=== PATIENT | female | born 1945 | race Caucasian/White ===

== ENCOUNTER 2021-10-26 18:48 | Emergency (ER) | payer MEDICARE, OTHER ==
[2021-10-26 19:24] LABS: HEMOGLOBIN 8.2 gm/dl (12.3-15.3); RED BLOOD COUNT 3.06 M/UL (4.00-5.10); WHITE BLOOD COUNT 6.2 K/UL (4.5-11.0)
[2021-10-26 19:50] LABS: BUN/CREATININE RATIO 24 (0-10)
[2021-10-26 20:52] LABS: BORDETELLA PARAPERTUSSIS Not Detected (Not Detectd); BORDETELLA PERTUSSIS Not Detected (Not Detectd); CHLAMYDIA PNEUMONIAE Not Detected (Not Detectd); CORONAVIRUS HKU1 Not Detected (Not Detectd); CORONAVIRUS NL63 Not Detected (Not Detectd); CORONAVIRUS OC43 Not Detected (Not Detectd); CORONOAVIRUS 229E Not Detected (Not Detectd); HUMAN METAPNEUMOVIRUS Not Detected (Not Detectd); HUMAN RHINOVIRUS/ENTEROVIRUS Not Detected (Not Detectd); INFLUENZA A Not Detected (Not Detectd); INFLUENZA B Not Detected (Not Detectd); MYCOPLASMA PNEUMONIAE Not Detected (Not Detectd); PARAINFLUENZA VIRUS 1 Not Detected (Not Detectd); PARAINFLUENZA VIRUS 2 Not Detected (Not Detectd); PARAINFLUENZA VIRUS 3 Not Detected (Not Detectd); PARAINFLUENZA VIRUS 4 Not Detected (Not Detectd); RESPIRATORY SYNCYTIAL VIRUS Not Detected (Not Detectd)
[2021-10-26 22:33] LABS: SARS-CoV-2 DETECTED (Not Detectd)
[2021-10-26] MEDS ORDERED: CEFUROXIME500 MG PO (23:26)
== END 2021-10-27 01:00 | disposition home or self-care (01) ==
LOC: ER1 18:48
PROVIDERS: Preventive Medicine Occupational Medicine
DX: U07.1 COVID-19 (principal); N39.0 Urinary tract infection, site not specified; E11.9 Type 2 diabetes mellitus without complications; I10 Essential (primary) hypertension; I25.10 Atherosclerotic heart disease of native coronary artery without angina pectoris
CPT/HCPCS: 36600; 70450; 71045; 80048; 80053; 80307; 81001; 82009; 82550; 82553; 82803; 82962; 83605; 83690; 83874; 83880; 84484; 85025; 85652; 86140; 87086; 87633; 93005; 96374; 99284; Q9967

== ENCOUNTER 2021-10-29 13:03 | Inpatient (IN) | payer MEDICARE, OTHER ==
[~2021-10-29] VITALS: Ht 162.6 cm; Wt 123.4 kg
[~2021-10-29 13:03] MED LIST: CEFUROXIME500 MG PO
[2021-10-29 13:29] LABS: HEMOGLOBIN 7.9 gm/dl (12.3-15.3); RED BLOOD COUNT 2.93 M/UL (4.00-5.10); WHITE BLOOD COUNT 4.8 K/UL (4.5-11.0)
[2021-10-30 04:05] LABS: HEMOGLOBIN 7.8 gm/dl (12.3-15.3); RED BLOOD COUNT 2.94 M/UL (4.00-5.10)
[2021-10-30 04:10] LABS: WHITE BLOOD COUNT 2.7 K/UL (4.5-11.0)
[2021-10-30] MEDS ORDERED: AMITRIPTYLINE H25 MG PO (14:21)
[2021-10-30] MEDS ORDERED: PROAIR HFA8.5 GM INH (14:21)
[2021-10-30] MEDS ORDERED: ELIQUIS5 MG PO (14:22)
[2021-10-30] MEDS ORDERED: BUMETANIDE1 MG PO (14:22)
[2021-10-30] MEDS ORDERED: CETIRIZINE HCL10 MG PO (14:23)
[2021-10-30] MEDS ORDERED: PLAVIX 75 MG TA75 MG PO (14:23)
[2021-10-30] MEDS ORDERED: COLCHICINE 0.60.6 MG PO (14:23)
[2021-10-30] MEDS ORDERED: BANOPHEN25 MG PO (14:24)
[2021-10-30] MEDS ORDERED: DRISDOL1250 MCG PO (14:24)
[2021-10-30] MEDS ORDERED: DOCUSATE SODIU100 MG PO (14:24)
[2021-10-30] MEDS ORDERED: HYDRALAZINE HCL50 MG PO (14:25)
[2021-10-30] MEDS ORDERED: LASIX20 MG PO (14:25)
[2021-10-30] MEDS ORDERED: LEVEMIR FL100 UNIT/1 SC (14:25)
[2021-10-30] MEDS ORDERED: SYNTHROID75 MCG PO (14:27)
[2021-10-30] MEDS ORDERED: HUMALOG100 UNIT/3 SC (14:27)
[2021-10-30] MEDS ORDERED: LOPRESSOR 25 MG25 MG PO (14:27)
[2021-10-30] MEDS ORDERED: FERREX 150150 MG PO (14:28)
[2021-10-30] MEDS ORDERED: OMEPRAZOLE20 MG PO (14:28)
[2021-10-30] MEDS ORDERED: ZOCOR10 MG PO (14:29)
[2021-10-30] MEDS ORDERED: POTASSIUM CHLO10 ME2 PO (14:29)
[2021-10-30] MEDS ORDERED: MIRALAX17 GM PO (14:30)
[2021-10-30] MEDS ORDERED: SOTALOL80 MG PO (14:30)
[2021-10-30] MEDS ORDERED: HYDROCODON-ACE1 EAC4 PO (14:30)
[2021-10-31 03:55] LABS: RED BLOOD COUNT 2.91 M/UL (4.00-5.10)
[2021-10-31 04:18] LABS: WHITE BLOOD COUNT 4.5 K/UL (4.5-11.0)
[2021-11-01 03:01] LABS: HEMOGLOBIN 8.2 gm/dl (12.3-15.3); RED BLOOD COUNT 2.97 M/UL (4.00-5.10); WHITE BLOOD COUNT 5.3 K/UL (4.5-11.0)
[2021-11-02 03:08] LABS: HEMOGLOBIN 8.5 gm/dl (12.3-15.3); RED BLOOD COUNT 3.11 M/UL (4.00-5.10); WHITE BLOOD COUNT 6.2 K/UL (4.5-11.0)
[2021-11-03 03:31] LABS: HEMOGLOBIN 9.2 gm/dl (12.3-15.3); RED BLOOD COUNT 3.29 M/UL (4.00-5.10); WHITE BLOOD COUNT 5.9 K/UL (4.5-11.0)
[2021-11-03 09:15] LABS: CREATININE, URINE 34.8 mg/dL (Not Estab.)
[2021-11-04 03:55] LABS: HEMOGLOBIN 8.8 gm/dl (12.3-15.3); RED BLOOD COUNT 3.16 M/UL (4.00-5.10); WHITE BLOOD COUNT 5.8 K/UL (4.5-11.0)
[2021-11-04] MEDS ORDERED: BUMETANIDE1 MG PO (08:50)
[2021-11-04] MEDS ORDERED: DECADRON6 MG PO (08:50)
== END 2021-11-04 15:56 | disposition home or self-care (01) | DRG 177 ==
LOC: ER1 13:03 → PROG CARE 15:58 → CDU 15:58 → PROG CARE 10-30 19:05
PROVIDERS: Emergency Medicine; Internal Medicine; Internal Medicine Nephrology; ADMIT Internal Medicine
PROC: 8E0ZXY6 Isolation (ICD-10-PCS; principal; 2021-10-29)
PROC: XW033E5 Introduction of Remdesivir Anti-infective into Peripheral Vein, Percutaneous Approach, New Technology Group 5 (ICD-10-PCS; 2021-10-29)
PROC: 3E0333Z Introduction of Anti-inflammatory into Peripheral Vein, Percutaneous Approach (ICD-10-PCS; 2021-10-29)
PROC: B24BZZZ Ultrasonography of Heart with Aorta (ICD-10-PCS; 2021-10-31)
DX: U07.1 COVID-19 (principal); J12.82 Pneumonia due to coronavirus disease 2019; J96.21 Acute and chronic respiratory failure with hypoxia; I50.33 Acute on chronic diastolic (congestive) heart failure; J15.9 Unspecified bacterial pneumonia; I13.0 Hypertensive heart and chronic kidney disease with heart failure and stage 1 through stage 4 chronic kidney disease, or unspecified chronic kidney disease; N17.9 Acute kidney failure, unspecified; Z68.43 Body mass index [BMI] 50.0-59.9, adult; E87.1 Hypo-osmolality and hyponatremia; E87.3 Alkalosis; D50.9 Iron deficiency anemia, unspecified; N18.30 Chronic kidney disease, stage 3 unspecified; E11.22 Type 2 diabetes mellitus with diabetic chronic kidney disease; R53.83 Other fatigue; E66.01 Morbid (severe) obesity due to excess calories; E83.42 Hypomagnesemia; E03.9 Hypothyroidism, unspecified; Z66 Do not resuscitate; I25.10 Atherosclerotic heart disease of native coronary artery without angina pectoris; E78.5 Hyperlipidemia, unspecified; I48.91 Unspecified atrial fibrillation; K59.00 Constipation, unspecified; F41.9 Anxiety disorder, unspecified; Z82.49 Family history of ischemic heart disease and other diseases of the circulatory system; Z83.3 Family history of diabetes mellitus; Z88.8 Allergy status to other drugs, medicaments and biological substances; Z79.4 Long term (current) use of insulin; Z99.81 Dependence on supplemental oxygen; Z95.1 Presence of aortocoronary bypass graft; Z90.49 Acquired absence of other specified parts of digestive tract; Z79.01 Long term (current) use of anticoagulants; Z74.01 Bed confinement status
CPT/HCPCS: ECHO; 36415; 36600; 51702; 70450; 71045; 80048; 80053; 80307; 81001; 82009; 82043; 82140; 82550; 82553; 82570; 82728; 82803; 82962; 83036; 83540; 83550; 83605; 83690; 83735; 83874; 83880; 84100; 84156; 84484; 85025; 85027; 85610; 85652; 86140; 87040; 87086; 87633; 93005; 93306; 94640; 94760; 96365; 96366; 96372; 96374; 96375; 99284; 99285; J0248; J0696; J1100; J1120; J1756; J1940; J2543; J3475; J7030; J7070; Q9967; U0002